=== PATIENT | male | born 1995 | race Caucasian/White ===

== ENCOUNTER 2016-03-28 23:01 | Emergency (ER) | payer MEDICAID ==
[~2016-03-28] VITALS: Ht 180.3 cm; Wt 115.7 kg
[2016-03-28 23:05] VITALS: BP 155/93
--- NOTE | 2016-03-28 23:10 | NUR ---
PT TAKEN TO BED 3 Addendum: 03/28/16 at 2312 by LISBETO PT TAKEN TO BED 1
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
--- NOTE | 2016-03-28 23:30 | NUR ---
Dr. Mendoza evaluating patient at bedside.
[2016-03-28] MEDS ORDERED: DEXAMETHASONE 10 MG/ML VIAL PO ONE (23:45)
[2016-03-28] MEDS ORDERED: HYDROcodone/APAP 5/325 MG 1 TAB TAB PO ONE (23:45)
[2016-03-28] MEDS ORDERED: KETOROLAC 30 MG/ML VIAL IM ONE (23:45)
[2016-03-29 00:10] VITALS: BP 140/85
--- NOTE | 2016-03-29 00:11 | NUR ---
Note yenifer in EDM - 03/29/16 at 0012 by MED Patient discharged with v/s stable. Written and verbal after care instructions given and explained. Patient alert, oriented and verbalized understanding of instructions. Ambulatory with steady gait. All questions addressed prior to discharge. ID band removed. Patient advised to follow up with PMD. Rx of AMOXICILLIN 500MG, TYLENOL NO.3, NAPROSYN 500 MG given. Patient educated on indication of medication including possible reaction and side effects. Opportunity to ask questions provided and answered.
[2016-05-05] MEDS ORDERED: ULTRAM50 MG PO (02:29)
[2016-05-05] MEDS ORDERED: MOTRIN600 MG PO (02:29)
[2016-05-09] MEDS ORDERED: ASPIRIN81 M1 PO (12:03)
[2016-05-09] MEDS ORDERED: ACETAMINOPHEN &1 TA1 PO (12:03)
[2016-05-09] MEDS ORDERED: CULTURELLE10 Billion PO (12:03)
[2016-05-09] MEDS ORDERED: ATORVASTATIN CA20 MG PO (12:03)
[2016-05-09] MEDS ORDERED: BACTRIM DS 800/1 TAB PO (12:10)
[2016-05-09] MEDS ORDERED: COLACE100 M1 PO (12:13)
== END 2016-03-29 00:09 | disposition home or self-care (01) ==
LOC: MED 23:01
DX: H66.92 Otitis media, unspecified, left ear (principal); J02.9 Acute pharyngitis, unspecified
CPT/HCPCS: 96372; 99283; J1100; J1885

== ENCOUNTER 2016-05-04 22:57 | Inpatient (IN) | payer MEDICAID ==
[~2016-05-04] VITALS: Ht 180.3 cm; Wt 115.7 kg
[2016-05-04 23:38] VITALS: BP 109/74
--- NOTE | 2016-05-05 00:54 | NUR ---
PT TAKEN TO OF3
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
--- NOTE | 2016-05-05 01:05 | NUR ---
Dr. Sahu evaluating patient
[2016-05-05] MEDS ORDERED: MORPHINE SULFATE 10 MG/ML SYR IVP ONE (01:10)
[2016-05-05] MEDS ORDERED: VANCOMYCIN 1,000 MG in DEXTROSE 5% 250 ML IV ONE (01:10)
--- NOTE | 2016-05-05 01:10 | NUR ---
PT MOVED TO BED 7
[2016-05-05] MEDS ORDERED: VANCOMYCIN 1,000 MG VIAL ONE (01:19)
--- NOTE | 2016-05-05 01:27 | NUR ---
X-Ray at bedside.
[2016-05-05 01:30] LABS: BASOPHILS # (AUTO) 0.6 K/uL (0.00-0.22); BASOPHILS % (AUTO) 3.6 % (0.0-2.0); EOSINOPHILS # (AUTO) 0.4 K/uL (0-0.4); EOSINOPHILS % (AUTO) 2.4 % (0.0-4.0); HEMATOCRIT 47.1 % (36-52); HEMOGLOBIN 15.6 g/dL (12.0-18.0); LYMPHOCYTES # (AUTO) 3.3 K/uL (2.0-11.5); LYMPHOCYTES % (AUTO) 20.2 % (20.5-51.1); MEAN CORPUSCULAR HEMOGLOBIN 29 pg (27-31); MEAN CORPUSCULAR HGB CONC 33 g/dL (33-37); MEAN CORPUSCULAR VOLUME 88 fL (80-94); MONOCYTES # (AUTO) 0.7 K/uL (0.8-1.0); NEUTROPHILS # (AUTO) 11.3 K/uL (1.8-7.7); NEUTROPHILS % (AUTO) 69.8 % (42.2-75.2); PLATELET COUNT (AUTO) 267 K/uL (140-450); RED BLOOD CELL COUNT(AUTO) 5.38 MIL/uL (4.20-6.10); RED CELL DISTRIBUTION WIDTH 12.1 % (11.6-13.7)
[2016-05-05 01:41] LABS: WHITE BLOOD COUNT (AUTO) 16.3 K/uL (4.8-10.8)
[2016-05-05 01:46] LABS: ANION GAP 8.5 (8-16); CALCIUM 8.3 mg/dL (8.5-10.1); CARBON DIOXIDE 32.2 mmol/L (21-32); CREATININE 1.1 mg/dL (0.6-1.3); POTASSIUM 3.7 mmol/L (3.5-5.1); TOTAL BILIRUBIN 0.4 mg/dL (0.0-1.0); TOTAL PROTEIN, SERUM 7.7 g/dL (6.4-8.2)
[2016-05-05] MEDS ORDERED: IBUP-2213 PO (02:29)
[2016-05-05] MEDS ORDERED: TRAM50TA94 PO (02:29)
[2016-05-05 02:30] LABS: APPEARANCE,URINE CLEAR (CLEAR); BILIRUBIN,URINE NEGATIVE (NEGATIVE); BLOOD, URINE NEGATIVE (NEGATIVE); COLOR,URINE YELLOW (YELLOW); LEUKOCYTE ESTERASE ,URINE NEGATIVE (NEGATIVE); NITRITE, URINE NEGATIVE (NEGATIVE); PROTEIN,URINE TRACE (NEGATIVE); UGLUCOSE NEGATIVE (NEGATIVE); UROBILINOGEN,URINE 0.2 EU/dL (0.2 - 1)
[2016-05-05 02:46] LABS: BACTERIA,URINE FEW /HPF (None Seen); MUCUS,URINE 4+ /LPF (None Seen); RBC,URINE 0-5 (RARE) /HPF (0-5); SQUAMOUS EPITHELIAL CELL,UR 0-3 (FEW) /LPF (0-3 (FEW)); WBC,URINE 0-5 (RARE) /HPF (0-5)
--- NOTE | 2016-05-05 02:56 | NUR ---
[address] in [facility] - 05/05/16 at 0257 by DOMINIQUE SALBADOR BOLANOS RN GIVE REPORT; STATES SHE WILL CALL BACK
--- NOTE | 2016-05-05 02:56 | NUR ---
CALLED LUKE BOLANOS FOR REPORT; STATES SHE WILL CALL BACK
--- NOTE | 2016-05-05 03:06 | NUR ---
Patient will be admitted to care of . Admited to M/S. Will go to room 119B. Belongings list completed. Report to LUKE BOLANOS
--- NOTE | 2016-05-05 03:20 | NUR ---
ADMITTED 20 YEAR OLD MALE FROM ER. PT ARRIVED TO UNIT VIA WHEEL CHAIR. INITIAL ASSESSMENT COMPLETED. PT AAOX4. PT HAS IV TO RIGHT AC G 20, ASYMPTOMATIC, PATENT AND INTACT INFUSING VANCO AT THIS TIME. PT HAS CELLULITIS TO LEFT KNEE/ULCER. PT'S VS : BP 123/98, HR78, 02 SAT 98%, R 18, T 98.7. PT STABLE. PT AMBULATES. ORIENTED PT TO ROOM AND SURROUNDINGS AND USE OF CALL LIGHT. SAFETY MEASURES IN PLACE. WILL CONTINUE TO MONITOR PT.
[2016-05-05] MEDS ORDERED: NACL 0.9% 1,000 ML IV SCH (03:56)
[2016-05-05] MEDS: CLINDAMYCIN 600 MG in DEXTROSE 5% 50 ML IV SCH ×4 (05:23→23:14)
[2016-05-05] MEDS ORDERED: CLINDAMYCIN 600 MG/4 ML VIAL ONE (05:23)
--- NOTE | 2016-05-05 05:33 | NUR ---
0600 CLEOCIN INFUSING NOW. PT STABLE RESTING IN BED. WILL CONTINUE TO MONITOR PT.
--- NOTE | 2016-05-05 07:16 | NUR ---
PT COMPLAINING OF KNEE PAIN 09/29, VS STABLE. WILL MEDICATE ORDERED.
[2016-05-05] MEDS: MORPHINE SULFATE 2 MG/ML SYR IVP PRN ×2 (07:18→18:00)
--- NOTE | 2016-05-05 07:34 | NUR ---
ENDORSED PT IN STABLE CONDITION TO RN SANDRA FOR CONTINUITY OF CARE. ENDORSED RN TO DO PAIN REASSESSMENT ON PT.
--- NOTE | 2016-05-05 07:35 | NUR ---
PT ALERT AND ORIENTED X4. BREATHING EVENLY AND UNLABORED. NO SIGNS OF ACUTE DISTRESS. SKIN IS WARM AND DRY. NOTED REDNESS ON LEFT KNEE AND ELBOW, DX CELLULITIS. CONTINUE ON CURRENT TREATMENT OF IV ABX AND FLUIDS. NO SIGNS OF ANY BOWEL/BLADDER DISCOMFORT. PAIN MANAGEMENT RENDERED. ALL NEEDS ATTENDED. SAFETY PRECAUTIONS MAINTAINED. CALL LIGHT WITHIN REACH.
--- NOTE | 2016-05-05 07:39 | NUR ---
NEW ORDERS RECEIVED FROM DR. FRIAS. NOTED AND CARRIED OUT.
[2016-05-05 08:00] VITALS: BP 132/78
[2016-05-05] MEDS: CALCIUM CARBONATE 500 MG TAB PO SCH ×2 (08:26→20:12)
[2016-05-05] MEDS: ONDANSETRON 4 MG/2 ML VIAL IVP PRN ×2 (08:26→18:03)
[2016-05-05] MEDS ORDERED: HYDROmorphone 1 MG/ML AMP IVP SCH (08:30)
[2016-05-05] MEDS: NACL 0.9% 1,000 ML IV SCH ×4 (08:40→20:11)
--- NOTE | 2016-05-05 08:45 | NUR ---
WENT OFF UNIT FOR CT.
--- NOTE | 2016-05-05 08:53 | NUR ---
PT CAME BACK FROM CT, A/O X4 NO SIGNS OF ACUTE DISTRESS. CONTINUE TO MONITOR.
[2016-05-05] MEDS ORDERED: SACCHAROMYCES 250 MG CAP PO SCH (09:00)
--- NOTE | 2016-05-05 09:06 | NUR ---
PATIENT HAS BEEN SCREENED AND CATEGORIZED HIGH NUTRITION RISK. PATIENT WILL BE SEEN WITHIN 1-2 DAYS OF ADMISSION. 05/05/16-05/06/[address]
[2016-05-05] MEDS: COMPOSITE DRESSING TP SCH (11:20)
[2016-05-05] MEDS ORDERED: ATORVASTATIN 20 MG TAB PO SCH (13:15)
[2016-05-05] MEDS ORDERED: LIDOCAINE 1% 500 MG/50 ML VIAL INJ SCH (13:20)
[2016-05-05] MEDS ORDERED: LIDOCAINE 2% 1000 MG/50 ML VIAL INJ ONE (13:25)
[2016-05-05] MEDS ORDERED: LIDOCAINE 1% 50 ML ONE (13:26)
[2016-05-05] MEDS ORDERED: HYDROmorphone 1 MG/ML AMP IVP PRN (13:30)
--- NOTE | 2016-05-05 13:34 | NUR ---
PT TO BE STARTED ON PROCEDURE, DEBRIDEMENT OF LEFT KNEE BY ASSIGNED RESIDENTS WITH DR. ACEVEDO RISKS AND BENEFITS EXPLAINED BY MD. CONTINUE TO MONITOR.
[2016-05-05] MEDS ORDERED: HYDROmorphone 1 MG/ML AMP ONE (13:35)
--- NOTE | 2016-05-05 14:00 | NUR ---
DRESSING ON LEFT KNEE INTACT AND DRY. NO BLEEDING OR DISCHARGE NOTED.
--- NOTE | 2016-05-05 14:00 | NUR ---
PT S/P DEBRIDEMENT ON LEFT KNEE. TOLERATED WELL. DR. CRANE ALSO ON UNIT AND WAS SEEN BY MD. CONTINUE TO MONITOR.
[2016-05-05] MEDS ORDERED: DRY DRESSING TP PRN (14:55)
[2016-05-05] MEDS ORDERED: NACL 0.9% IRR 250 ML BOTTLE IR PRN (14:55)
--- NOTE | 2016-05-05 15:00 | NUR ---
05/05/16 RD INITIAL ASSESSMENT COMPLETED PLEASE REFER TO NUTRITION ASSESSMENT UNDER CARE ACTIVITY FOR ESTIMATED NUTRITIONAL NEEDS. RD RECOMMENDATIONS: 1. CONTINUE NPO MEDICALLY NECESSARY PER MD 2. WHEN MEDICALLY APPROPRIATE CONSIDER ADVANCE PT DIET TOLERATED TO REGULAR 2. RD WILL F/U 3-5 DAYS; MODERATE RISK. HECTOR CHASE RD
[2016-05-05 15:30] VITALS: BP 129/69
--- NOTE | 2016-05-05 15:30 | NUR ---
NOTED PT'S TEMP ELEVATED 100.1F. COOLING MEASURES RENDERED, CONTINUE TO MONITOR.
--- NOTE | 2016-05-05 16:20 | NUR ---
PT TEMP DECREASED TO 97.6F INTERVENTION EFFECTIVE. PT IS RESTING WELL. NO C/O PAIN AT THIS TIME. CONTINUE TO MONITOR.
--- NOTE | 2016-05-05 18:53 | NUR ---
PT ALERT AND RESPONSIVE, NO SIGNS OF ACUTE DISTRESS. WILL ENDORSE TO ONCOMING PRINCIPAL MILITARY ANALYST NURSE FOR CONTINUITY OF CARE.
--- NOTE | 2016-05-05 19:20 | NUR ---
RECEIVED PT ON BED, DENIES ANY PAIN, DRESSING TO LEFT KNEE INTACT WITH MODERATE DRAINAGE NOTED, IVF INFUSING WELL, POC DISCUSSED WITH PT AND FAMILY MEMBERS AT BEDSIDE, SAFETY MEASURES IN PLACE, CALL LIGHT WITHIN REACH.
--- NOTE | 2016-05-05 20:20 | NUR ---
DRESSING CHANGE DONE TO LEFT KNEE WOUND, MODERATE SEROSANGUINEOUS DRAINAGE NOTED, COVERED WITH DRY DRESSING, ABD PAD AND ROLLED GAUZE, DUE MEDICATIONS ADMINISTERED, FAMILY BROUGHT FOOD FROM OUTSIDE, TOLERATING WELL, IVF INFUSING WELL, ALL NEEDS ATTENDED.
[2016-05-05] MEDS: HYDROcodone/APAP 10/325 MG 1 TAB TAB PO PRN (21:24)
--- NOTE | 2016-05-05 21:30 | NUR ---
MEDICATED PRN FOR PAIN WITH NORCO, ALL NEEDS ATTENDED.
[2016-05-06] VITALS: BP 116/63
--- NOTE | 2016-05-06 | NUR ---
PT SLEEPING, EASILY AROUSABLE, VITAL SIGNS STABLE, DENIES ANY PAIN, LEFT KNEE DRESSING DRY AND INTACT, CONTINUE TO MONITOR CLOSELY.
[2016-05-06] MEDS: NACL 0.9% IRR 250 ML BOTTLE IR SCH ×2 (00:44→13:00)
[2016-05-06] MEDS: NACL 0.9% 1,000 ML IV SCH ×2 (04:30→12:00)
--- NOTE | 2016-05-06 05:30 | NUR ---
DUE IV ANTIBIOTIC ADMINISTERED, NO SIGNS OF PAIN, MONITORED CLOSELY.
[2016-05-06] MEDS: CLINDAMYCIN 600 MG in DEXTROSE 5% 50 ML IV SCH ×3 (05:33→17:29)
[2016-05-06 05:47] LABS: BASOPHILS # (AUTO) 0.1 K/uL (0.00-0.22); BASOPHILS % (AUTO) 0.6 % (0.0-2.0); EOSINOPHILS # (AUTO) 0.2 K/uL (0-0.4); EOSINOPHILS % (AUTO) 0.8 % (0.0-4.0); HEMATOCRIT 42.5 % (36-52); HEMOGLOBIN 14.3 g/dL (12.0-18.0); LYMPHOCYTES # (AUTO) 1.9 K/uL (2.0-11.5); LYMPHOCYTES % (AUTO) 9.5 % (20.5-51.1); MEAN CORPUSCULAR HEMOGLOBIN 30 pg (27-31); MEAN CORPUSCULAR HGB CONC 34 g/dL (33-37); MEAN CORPUSCULAR VOLUME 88 fL (80-94); MONOCYTES # (AUTO) 1.1 K/uL (0.8-1.0); MONOCYTES % (AUTO) 5.4 % (1.7-9.3); NEUTROPHILS # (AUTO) 16.3 K/uL (1.8-7.7); NEUTROPHILS % (AUTO) 83.7 % (42.2-75.2); PLATELET COUNT (AUTO) 186 K/uL (140-450); RED BLOOD CELL COUNT(AUTO) 4.81 MIL/uL (4.20-6.10); RED CELL DISTRIBUTION WIDTH 12.1 % (11.6-13.7)
[2016-05-06 06:05] LABS: ALBUMIN 3.1 g/dL (3.4-5.0); ANION GAP 10.2 (8-16); CALCIUM 7.9 mg/dL (8.5-10.1); CARBON DIOXIDE 29.8 mmol/L (21-32); MAGNESIUM 1.9 mg/dL (1.8-2.4); PHOSPHORUS 2.7 mg/dL (2.5-4.9); TOTAL BILIRUBIN 1.1 mg/dL (0.0-1.0); TOTAL PROTEIN, SERUM 6.8 g/dL (6.4-8.2)
[2016-05-06] MEDS: HYDROcodone/APAP 10/325 MG 1 TAB TAB PO PRN ×3 (06:19→17:29)
--- NOTE | 2016-05-06 06:20 | NUR ---
PT SEEN BY DR ACEVEDO AND DR FRIAS AT BEDSIDE, MINIMAL DRAINAGE NOTED TO LEFT KNEE DRESSING, DRESSING CHANGE DONE, TOLERATED WELL, MEDICATED WITH NORCO FOR PAIN, IVF INFUSING WELL.
[2016-05-06 06:42] LABS: WHITE BLOOD COUNT (AUTO) 19.6 K/uL (4.8-10.8)
--- NOTE | 2016-05-06 07:16 | NUR ---
PT SLEEPING, NO SIGNS OF DISTRESS, REPORT GIVEN TO RN SCOTTY FOR CONTINUITY OF CARE.
--- NOTE | 2016-05-06 07:20 | NUR ---
RECEIVED REPORT FROM CUPOLA PATCHER HELPER RN. PT IS SLEEPING. NO S/S OF ACUTE CARDIAC/RESPIRATORY DISTRESS OR DISCOMFORT. SAFETY MEASURES AND FALL RISK PRECAUTION IN PLACE. CALL LIGHT WITHIN REACH. WILL CONTINUE PLAN OF CARE AND CONTINUE TO MONITOR.
[2016-05-06 07:56] VITALS: BP 115/55
[2016-05-06] MEDS: ATORVASTATIN 20 MG TAB PO SCH (09:23)
[2016-05-06] MEDS: LACTOBACILLUS RHAMNOSUS GG 1 EACH CAP PO SCH (09:23)
[2016-05-06] MEDS: CALCIUM CARBONATE 500 MG TAB PO SCH ×2 (09:23→20:48)
--- NOTE | 2016-05-06 10:24 | NUR ---
PT IS ON HIS PHONE, RESTING IN BED. PT TOLERATED AM MEDS WELL. NO S/S OF ACUTE DISTRESS OR DISCOMFORT. CALL LIGHT WITHIN REACH, WILL CONTINUE TO MONITOR.
[2016-05-06] MEDS: DRY DRESSING TP SCH (13:00)
[2016-05-06] MEDS: COMPOSITE DRESSING TP SCH (13:00)
--- NOTE | 2016-05-06 13:00 | NUR ---
PT SEEN BY DR CRANE, SPOKE WITH PT'S MOTHER WELL. DRESSING CHANGE DONE. PT TOLERATED PROCEDURE WELL. DISCUSSED PLAN OF CARE AND DRESSING TEACHING PROVIDED TO PT AND HIS MOTHER, VERBALIZED UNDERSTANDING.
[2016-05-06 16:00] VITALS: BP 131/69
--- NOTE | 2016-05-06 16:00 | NUR ---
PT AND HIS MOTHER RAISED THEIR CONCERN ABOUT CARE NOT BEING UP TO PAR AND WOULD LIKE TO BE TRANSFERRED TO [facility] [place]. CHARGE NURSE AND MD MADE AWARE. PT HAS MILD FEVER, MEDICATED WITH TYLENOL. MOTHER WHEELCHAIRED PT AROUND THE HOSPITAL FOR AIR. PT HAS NO S/S OF ACUTE DISTRESS OR DISCOMFORT. WILL CONTINUE TO MONITOR.
[2016-05-06] MEDS: ACETAMINOPHEN 325 MG TAB PO PRN ×2 (16:55→23:33)
--- NOTE | 2016-05-06 19:30 | NUR ---
ENDORSED REPORT TO SMALL PRODUCTS I ASSEMBLER RN. PT HAS NO S/S OF ACUTE DISCOMFORT OR DISTRESS. PT IN STABLE CONDITION.
--- NOTE | 2016-05-06 19:30 | NUR ---
RECEIVED REPORT FROM DEANNE SWEENEY RN AT BEDSIDE. PT IS ALERT AWAKE ORIENTED X4. INITIAL ASSESSMENT DONE. NO S/S OF RESPIRATORY DISTRESS OR SOB NOTED. NO C/O PAIN OR ANY DISCOMFORT AT THIS TIME. PLAN OF CARE REVIEWED TO PT AND FAMILY AT BEDSIDE AND VERBALIZED UNDERSTANDING. CALL LIGHT WITHIN REACH. WILL CONTINUE TO MONITOR.
--- NOTE | 2016-05-06 20:43 | NUR ---
GAVE REPORT TO SHARI AT BEDSIDE FOR CONTINUITY OF CARE.
--- NOTE | 2016-05-06 20:45 | NUR ---
RECEIVED REPORT FROM LOYDA BUTLER AT BEDSIDE, PATIENT IS IN STABLE CONDITION RESTING IN BED WITH FAMILY MEMBERS AT BEDSIDE, PATIENT IS ON ROOM AIR, NO SOB OR SIGN OF DISTRESS AT THIS TIME, IV TO LFA PATENT AND INTACT. NOTED OPEN WOUND TO LEFT KNEE, COVERED WITH DRESSING DRY AND INTACT. PATIENT DENIES PAIN AT THIS TIME, DISCUSSED PLAN OF CARE WITH PATIENT, PATIENT VERBALIZED UNDERSTANDING, CALL LIGHT WITHIN REACH. WILL CONTINUE TO MONITOR.
--- NOTE | 2016-05-06 20:55 | NUR ---
PM MEDS ADMINISTERED, PATIENT TOLERATED WELL, FAMILY AT BEDSIDE, CALL LIGHT WITHIN REACH. WILL CONTINUE TO MONITOR
[2016-05-07] VITALS: BP 126/61
--- NOTE | 2016-05-07 00:30 | NUR ---
DUE MEDS ADMINISTERED, PATIENT TOLERATED WELL, DISCUSSED WITH PATIENT DRESSING TO BE CHANGED LATER IN THE MORNING, PATIENT VERBALIZED UNDERSTANDING, CALL LIGHT WITHIN REACH. WILL CONTINUE TO MONITOR. VITAL SIGNS STABLE.
[2016-05-07] MEDS: CLINDAMYCIN 600 MG in DEXTROSE 5% 50 ML IV SCH ×5 (00:35→23:41)
[2016-05-07] MEDS: HYDROcodone/APAP 10/325 MG 1 TAB TAB PO PRN (00:35)
[2016-05-07] MEDS: NACL 0.9% IRR 250 ML BOTTLE IR SCH ×2 (01:28→13:02)
--- NOTE | 2016-05-07 02:30 | NUR ---
PATIENT SLEEPING, NO SOB OR SIGN OF DISTRESS AT THIS TIME, CALL LIGHT WITHIN REACH. WILL CONTINUE TO MONITOR.
--- NOTE | 2016-05-07 04:00 | NUR ---
PATIENT SLEEPING, NO SOB OR SIGN OF DISTRESS AT THIS TIME, CALL LIGHT WITHIN REACH. WILL CONTINUE TO MONITOR.
--- NOTE | 2016-05-07 05:45 | NUR ---
PATIENT WAS SLEEPING, WOKE UP FOR DRESSING CHANGE, PATIENT TOLERATED WELL, CALL LIGHT WITHIN REACH. WILL CONTINUE TO MONITOR
[2016-05-07 06:27] LABS: BASOPHILS # (AUTO) 0.1 K/uL (0.00-0.22); BASOPHILS % (AUTO) 0.9 % (0.0-2.0); EOSINOPHILS # (AUTO) 0.3 K/uL (0-0.4); EOSINOPHILS % (AUTO) 2.1 % (0.0-4.0); HEMATOCRIT 41.8 % (36-52); HEMOGLOBIN 14.1 g/dL (12.0-18.0); LYMPHOCYTES % (AUTO) 14.2 % (20.5-51.1); MEAN CORPUSCULAR HEMOGLOBIN 30 pg (27-31); MEAN CORPUSCULAR HGB CONC 34 g/dL (33-37); MEAN CORPUSCULAR VOLUME 88 fL (80-94); MONOCYTES # (AUTO) 0.9 K/uL (0.8-1.0); MONOCYTES % (AUTO) 6.2 % (1.7-9.3); NEUTROPHILS % (AUTO) 76.6 % (42.2-75.2); PLATELET COUNT (AUTO) 187 K/uL (140-450); RED BLOOD CELL COUNT(AUTO) 4.74 MIL/uL (4.20-6.10); RED CELL DISTRIBUTION WIDTH 11.8 % (11.6-13.7); WHITE BLOOD COUNT (AUTO) 14.3 K/uL (4.8-10.8)
[2016-05-07 06:35] LABS: CALCIUM 7.8 mg/dL (8.5-10.1); CARBON DIOXIDE 31.8 mmol/L (21-32); POTASSIUM 3.8 mmol/L (3.5-5.1)
[2016-05-07 06:39] LABS: MAGNESIUM 2.1 mg/dL (1.8-2.4); PHOSPHORUS 2.7 mg/dL (2.5-4.9)
--- NOTE | 2016-05-07 07:24 | NUR ---
ENDORSED PATIENT TO DAY RN AT BEDSIDE, PATIENT IN STABLE CONDITION
--- NOTE | 2016-05-07 07:25 | NUR ---
RECEIVED PT FROM LUKE MCCARTHY ASLEEP BUT EASILY AWOKEN, AAOX4, WITH NO S/S OF RESPIRATORY DISTRESS OR DISCOMFORT. WITH IV ACCESS ON LEFT FOREARM 22G INFUSING FLUIDS WELL. WITH WOUND DRESSING ON LEFT KNEE, DRESSING DRY AND INTACT. WITH BRUISES ON RIGHT KNEE. NO COMPLAINTS AT THIS TIME. DISCUSSED PLAN OF CARE, PT VERBALIZED UNDERSTANDING. CALL LIGHT WITHIN REACH, WILL CONTINUE TO MONITOR.
[2016-05-07 08:00] VITALS: BP 122/73
[2016-05-07] MEDS: LACTOBACILLUS RHAMNOSUS GG 1 EACH CAP PO SCH (08:54)
[2016-05-07] MEDS: CALCIUM CARBONATE 500 MG TAB PO SCH ×2 (08:54→20:32)
[2016-05-07] MEDS: ATORVASTATIN 20 MG TAB PO SCH (09:01)
--- NOTE | 2016-05-07 09:07 | NUR ---
DUE MEDS GIVEN, PT TOLERATED WELL. MOTHER AT BEDSIDE. ALL NEEDS MET, WILL CONTINUE TO MONITOR.
--- NOTE | 2016-05-07 09:52 | NUR ---
DR MARQUES AT BEDSIDE.
--- NOTE | 2016-05-07 11:01 | NUR ---
PT AWAKE, WITH RELATIVES AT BEDSIDE, NO DISTRESS AT THIS TIME. ALL NEEDS MET. WITH MOTHER AT BEDSIDE.
[2016-05-07] MEDS: NACL 0.9% 1,000 ML IV SCH (11:30)
--- NOTE | 2016-05-07 12:01 | NUR ---
PT ASLEEP, NO SIGNS OF DISTRESS AT THIS TIME. CALL LIGHT WITHIN REACH, WILL CONTINUE TO MONITOR.
[2016-05-07] MEDS: COMPOSITE DRESSING TP SCH (13:02)
[2016-05-07] MEDS: DRY DRESSING TP SCH (13:03)
--- NOTE | 2016-05-07 13:17 | NUR ---
DRESSING CHANGED ON RIGHT KNEE. PT TOLERATED WELL. MINIMAL SANGUINEOUS DRAINAGE NOTED.
--- NOTE | 2016-05-07 15:48 | NUR ---
PT ASLEEP, WITH RELATIVE AT BEDSIDE. NO COMPLAINTS AT THIS TIME. CALL LIGHT WITHIN REACH, WILL CONTINUE TO MONITOR.
[2016-05-07 16:00] VITALS: BP 127/59
--- NOTE | 2016-05-07 17:41 | NUR ---
PT AWAKE SITTING ON BED WITH DAUGHTER AT BEDSIDE. NO S/S OF DISTRESS, DRESSING INTACT. CALL LIGHT WITHIN REACH, WILL CONTINUE TO MONITOR. Addendum: 05/07/16 at 1915 by Anne Campos RN WRONG PATIENT
--- NOTE | 2016-05-07 17:41 | NUR ---
PT AWAKE SITTING ON BED WATCHING TV WITH RELATIVE AT BEDSIDE. PT ABLE TO AMBULATE FROM BED TO TOILET, HAD BOWEL MOVEMENT. ALL NEEDS MET AT THIS TIME. CALL LIGHT WITHIN REACH, WILL CONTINUE TO MONITOR.
--- NOTE | 2016-05-07 19:16 | NUR ---
ENDORSED PT TO APURVA JENKINS IN STABLE CONDITION FOR CONTINUITY OF CARE
--- NOTE | 2016-05-07 19:17 | NUR ---
RECD. RESTING IN BED, AWAKE, A/OX4. RESPIRATION EVEN AND UNLABORED. IV SALINE LOCK AT THE RIGHT FOREARM G20, PATENT AND INTACT. WATCHING TV. RIGHT LEG WITH REDNESS AND SWELLING NOTED. DRESSING ON THE RIGHT KNEE DRY AND INTACT. PLAN OF CARE FOR THE SHIFT DISCUSSED. CLAIMED PAIN IN THE RIGHT LEG, 03/01, TOLERABLE. DOES NOT WANT TO BE MEDICATED AT THIS TIME. INSTRUCTED TO CALL NURSE IF PAIN INCREASES. VERBALIZED UNDERSTANDING.
--- NOTE | 2016-05-07 20:00 | NUR ---
Patient's Plan of Care was discussed and reviewed with CORRECTIONAL COUNSELOR/CASE MANAGER: ALICE MACEDO
[2016-05-08] VITALS: BP 126/65
--- NOTE | 2016-05-08 | NUR ---
IV INFILTRATED, NEW IV LINE INSERTED BY LUKE GARCIA AT THE RIGHT HAND G22.
[2016-05-08] MEDS: HYDROcodone/APAP 10/325 MG 1 TAB TAB PO PRN ×2 (00:06→21:53)
[2016-05-08] MEDS: NACL 0.9% IRR 250 ML BOTTLE IR SCH ×2 (01:00→13:00)
--- NOTE | 2016-05-08 01:30 | NUR ---
IV ACCIDENTALLY DISCONNECTED FROM PATIENT DUE TO PATIENT'S MOVEMENTS IN BED, CLEANSED AND REINFORCED TAPES.
--- NOTE | 2016-05-08 02:00 | NUR ---
STILL AWAKE IN BED, SPEAKING WITH SOMEBODY IN HIS CELLPHONE.
--- NOTE | 2016-05-08 03:00 | NUR ---
SLEEPING COMFORTABLY IN BED.
[2016-05-08] MEDS: CLINDAMYCIN 600 MG in DEXTROSE 5% 50 ML IV SCH ×3 (06:12→17:36)
--- NOTE | 2016-05-08 06:45 | NUR ---
STILL SLEEPING IN BED COMFORTABLY. WILL ENDORSED TO AM NURSE FOR CONTINUITY OF CARE.
[2016-05-08 06:46] LABS: BASOPHILS # (AUTO) 0.1 K/uL (0.00-0.22); EOSINOPHILS # (AUTO) 0.2 K/uL (0-0.4); EOSINOPHILS % (AUTO) 1.7 % (0.0-4.0); HEMATOCRIT 41.1 % (36-52); LYMPHOCYTES # (AUTO) 2.4 K/uL (2.0-11.5); LYMPHOCYTES % (AUTO) 21.5 % (20.5-51.1); MEAN CORPUSCULAR HEMOGLOBIN 30 pg (27-31); MEAN CORPUSCULAR HGB CONC 34 g/dL (33-37); MEAN CORPUSCULAR VOLUME 87 fL (80-94); MONOCYTES # (AUTO) 0.8 K/uL (0.8-1.0); MONOCYTES % (AUTO) 7.1 % (1.7-9.3); NEUTROPHILS # (AUTO) 7.8 K/uL (1.8-7.7); NEUTROPHILS % (AUTO) 68.7 % (42.2-75.2); PLATELET COUNT (AUTO) 227 K/uL (140-450); RED BLOOD CELL COUNT(AUTO) 4.73 MIL/uL (4.20-6.10); RED CELL DISTRIBUTION WIDTH 11.3 % (11.6-13.7); WHITE BLOOD COUNT (AUTO) 11.3 K/uL (4.8-10.8)
[2016-05-08 06:59] LABS: ANION GAP 6.2 (8-16); CALCIUM 8.2 mg/dL (8.5-10.1); CARBON DIOXIDE 31.5 mmol/L (21-32); POTASSIUM 3.7 mmol/L (3.5-5.1)
[2016-05-08 07:13] LABS: MAGNESIUM 2.2 mg/dL (1.8-2.4); PHOSPHORUS 3.6 mg/dL (2.5-4.9)
--- NOTE | 2016-05-08 07:15 | NUR ---
RECEIVED PATIENT REPORT AT BEDSIDE. PATIENT AWAKE, ALERT AND ORIENTED. NO S/S OF DISTRESS NOTED. DRESSING NOTED TO THE LEFT KNEE. DRESSING CLEAN DRY AND INTACT. IV LINE TO THE RIGHT HAND INTACT WITH IVF INFUSING WELL. BED LOWERED WITH CALL LIGHT WITHIN REACH. WILL CONTINUE TO MONITOR
--- NOTE | 2016-05-08 07:20 | NUR ---
SAFETY MAINTAINED DURING SHIFT. ENDORSED TO LUKE RUEDA FOR CONTINUITY OF CARE.
[2016-05-08 08:00] VITALS: BP 130/77
[2016-05-08 08:44] LABS: FREE T4 (FREE THYROXINE) 0.91 ng/dL (0.76-1.46); THYROID STIMULATING HORMONE 3.69 uIU/mL (0.34-3.76)
[2016-05-08] MEDS: ATORVASTATIN 20 MG TAB PO SCH (09:21)
[2016-05-08] MEDS: LACTOBACILLUS RHAMNOSUS GG 1 EACH CAP PO SCH (09:21)
[2016-05-08] MEDS: CALCIUM CARBONATE 500 MG TAB PO SCH ×2 (09:22→21:53)
--- NOTE | 2016-05-08 09:30 | NUR ---
ADMINISTERED DUE MEDS. PATIENT TOLERATED WELL. WILL CONTINUE TO MONITOR
--- NOTE | 2016-05-08 11:00 | NUR ---
PATIENT ASLEEP IN BED. NO S/S OF DISTRESS NOTED
[2016-05-08] MEDS: NACL 0.9% 1,000 ML IV SCH (11:11)
[2016-05-08] MEDS: COMPOSITE DRESSING TP SCH (13:00)
[2016-05-08] MEDS: DRY DRESSING TP SCH (13:00)
--- NOTE | 2016-05-08 13:30 | NUR ---
PATIENT IN BED WATCHING TELEVISION. NO S/S OF DISTRESS NOTED. MOTHER PRESENT AT BEDSIDE
[2016-05-08 16:00] VITALS: BP 115/55
--- NOTE | 2016-05-08 17:06 | NUR ---
WOUND DRESSING TO THE LEFT KNEE CHANGED. PATIENT TOLERATED WELL. PT'S MOTHER PRESENT AT BEDSIDE
--- NOTE | 2016-05-08 19:14 | NUR ---
ENDORSED CONTINUITY OF CARE TO THE NIGHT NURSE. PATIENT IN STABLE CONDITION
--- NOTE | 2016-05-08 19:15 | NUR ---
RECD. RESTING IN BED, AWAKE, A/OX4. RESPIRATION EVEN AND UNLABORED. IV SALINE LOCK AT THE RIGHT HAND G22, PATENT AND INTACT. LEFT KNEE WOUND COVERED WITH DRESSING DRY AND INTACT. CLAIMED HE FEELS BETTER THAN YESTERDAY.PAIN IN THE SITE 03/01, CLAIMED TOLERABLE. INSTRUCTED TO CALL NURSE WHEN NEEDING HELP. PLAN OF CARE FOR THE SHIFT DISCUSSED. VERBALIZED UNDERSTANDING.
--- NOTE | 2016-05-08 21:00 | NUR ---
Patient's Plan of Care was discussed and reviewed with MANAGER PROGRAMS: ALICE MACEDO
--- NOTE | 2016-05-08 21:10 | NUR ---
WATCHING TV WHILE EATING SNACK FOOD.
--- NOTE | 2016-05-08 23:00 | NUR ---
SPEAKING WITH SOMEBODY IN HIS CELLPHONE, NO COMPLAINT OF PAIN.
[2016-05-09] VITALS: BP 122/70
[2016-05-09] MEDS: CLINDAMYCIN 600 MG in DEXTROSE 5% 50 ML IV SCH ×2 (00:17→06:12)
[2016-05-09] MEDS: NACL 0.9% IRR 250 ML BOTTLE IR SCH ×2 (01:00→13:54)
--- NOTE | 2016-05-09 02:30 | NUR ---
SLEEPING COMFORTABLY IN HIS BED.
[2016-05-09 06:24] LABS: BASOPHILS # (AUTO) 0.1 K/uL (0.00-0.22); BASOPHILS % (AUTO) 1.2 % (0.0-2.0); EOSINOPHILS # (AUTO) 0.3 K/uL (0-0.4); EOSINOPHILS % (AUTO) 3.1 % (0.0-4.0); HEMOGLOBIN 13.9 g/dL (12.0-18.0); LYMPHOCYTES # (AUTO) 2.7 K/uL (2.0-11.5); LYMPHOCYTES % (AUTO) 26.8 % (20.5-51.1); MEAN CORPUSCULAR HEMOGLOBIN 30 pg (27-31); MEAN CORPUSCULAR HGB CONC 34 g/dL (33-37); MEAN CORPUSCULAR VOLUME 88 fL (80-94); MONOCYTES # (AUTO) 0.8 K/uL (0.8-1.0); MONOCYTES % (AUTO) 7.6 % (1.7-9.3); NEUTROPHILS % (AUTO) 61.3 % (42.2-75.2); PLATELET COUNT (AUTO) 250 K/uL (140-450); RED BLOOD CELL COUNT(AUTO) 4.66 MIL/uL (4.20-6.10); RED CELL DISTRIBUTION WIDTH 11.7 % (11.6-13.7); WHITE BLOOD COUNT (AUTO) 9.9 K/uL (4.8-10.8)
--- NOTE | 2016-05-09 07:00 | NUR ---
CONDITION REMAIN STABLE. WILL ENDORSE TO AM NURSE FOR CONTINUITY OF CARE.
--- NOTE | 2016-05-09 07:15 | NUR ---
ENDORSED TO LUKE AGUIRRE FOR CONTINUITY OF CARE.
--- NOTE | 2016-05-09 07:16 | NUR ---
RECEIVED REPORT FROM THE DIRECTOR OF BUSINESS OPERATIONS NURSE. PT IS ALERT AND ORIENTED. I INTRODUCED MYSELF AND UPDATED THE BOARD. PT HAS A R HAND IV TKO. L ELBOW HAS AN ISLAND DRESSING, HIS SCAB CAME OFF. PT HAD L KNEE DEBRIDEMENT ON 04/07. IT IS COVERED WITH DRESSING. DRY AND INTACT. HE IS TO HAVE A WOUND CONSULT TODAY. FAMILY AT BEDSIDE. NO SIGNS OF DISTRESS. WILL CONTINUE TO MONITOR PT.
[2016-05-09] MEDS ORDERED: SULFAMETH/TRIMETH DS 800/160MG 1 TAB PO SCH (07:39)
[2016-05-09 08:00] VITALS: BP 128/80
--- NOTE | 2016-05-09 08:00 | NUR ---
PT V/S ARE WITHIN NORMAL LIMITS. PT IS EATING HIS BREAKFAST. HIS FAMILY MEMBER IS GETTING READY TO LEAVE. EMPTIED HIS URINAL. PT HAS NO COMPLAINTS. NO DISTRESS. WENT OVER THE PLAN FOR TODAY. ANSWERED ALL QUESTIONS. CALL LIGHT WITHIN REACH. WILL CONTINUE TO MONITOR PT.
[2016-05-09] MEDS: ATORVASTATIN 20 MG TAB PO SCH (08:49)
[2016-05-09] MEDS: CALCIUM CARBONATE 500 MG TAB PO SCH (08:49)
[2016-05-09] MEDS: LACTOBACILLUS RHAMNOSUS GG 1 EACH CAP PO SCH (08:49)
[2016-05-09] MEDS: HYDROcodone/APAP 10/325 MG 1 TAB TAB PO PRN (08:54)
--- NOTE | 2016-05-09 08:56 | NUR ---
ADMINISTERED MORNING MEDS. PT TOLERATED WELL. HELP THE HEPARIN, PER PT STATES LONG HIM AMBULATES, HE DOES NOT NEED IT ANYMORE. CONFIRMED WITH MD. WILL CONTINUE TO MONITOR PT.
--- NOTE | 2016-05-09 10:30 | NUR ---
WOUND CARE NOTES: WOUND CARE INSTRUCTIONS PROVIDED, ABLE TO VERBALIZE UNDERSTANDING.
--- NOTE | 2016-05-09 11:08 | NUR ---
PT IN BED, EXERCISING HIS LEG, PLAYING HIS HAND HELD GAME. NO COMPLAINTS. ALL NEEDS MET. WILL CONTINUE TO MONITOR PT.
[2016-05-09] MEDS: NACL 0.9% 1,000 ML IV SCH (11:20)
--- NOTE | 2016-05-09 11:25 | NUR ---
DR. CRANE CALLED. ASKED ABOUT HOW PT IS DOING. PT IS STABLE, AMBULATING, EXERCISING HIS LEG. WANTED TO SPEAK TO THE RESIDENT MD. REFERRED TO DR. FRIAS. PER DR. FRIAS, PT WILL BE D/C'D TODAY. WILL PUT IN ORDERS. NEED TO CHANGED DRESSING BEFORE LEAVING.
[2016-05-09] MEDS: THERAHONEY GEL 42.5 GM TP SCH ×2 (12:00→13:55)
[2016-05-09] MEDS ORDERED: THERAHONEY GEL 42.5 GM TP PRN (12:00)
[2016-05-09] MEDS ORDERED: LACT10CA PO (12:03)
[2016-05-09] MEDS ORDERED: ASPI81CT89 PO (12:03)
[2016-05-09] MEDS ORDERED: ACET-4275 PO (12:03)
[2016-05-09] MEDS ORDERED: ATOR20TA40 PO (12:03)
[2016-05-09] MEDS ORDERED: SULF1TAB12 PO (12:10)
[2016-05-09] MEDS ORDERED: DOCU-67 PO (12:13)
[2016-05-09] MEDS ORDERED: Z-GUARD PASTE TP SCH (13:00)
[2016-05-09] MEDS: COMPOSITE DRESSING TP SCH (13:00)
[2016-05-09] MEDS: DRY DRESSING TP SCH (13:54)
--- NOTE | 2016-05-09 14:00 | NUR ---
DRESSING CHANGE AND WOUND CARE DONE. TOOK PICTURES. REWRAPPED WOUND. PT TOLERATED WELL. INSTRUCTED PT AND FATHER HOW TO DO WOUND CARE. PT AND PARENT VERBALIZED UNDERSTANDING. WENT OVER THE DISCHARGE INSTRUCTIONS. REMOVED IV, CANNULA INTACT, NO BLEEDING NOTED. REMOVED ALL WRIST BANDS. ANSWERED ALL QUESTIONS. PT SIGNED ALL APPROPRIATE PAPERS. WILL CHANGE INTO PERSONAL CLOTHES AND GATHER PERSONAL BELONGINGS. WILL CALL WHEN READY TO LEAVE. WILL CONTINUE TOT MONITOR.
--- NOTE | 2016-05-09 14:16 | NUR ---
WHEELED PT OUT TO THE FRONT OF THE HOSPITAL WITH FAMILY AT HIS SIDE. THEY HAVE ALL HIS PERSONAL BELONGINGS WITH HIM. I ALSO INCLUDED A WEEKS WORTH OF DRESSING. PT IS STABLE. REMINDED HIM TO FILL HIS RX AND FOLLOW UP WITH HIS
[2016-05-12] MEDS ORDERED: LEVO500T98 PO (10:08)
== END 2016-05-09 14:10 | disposition home or self-care (01) | DRG 313 ==
LOC: MED 22:57 → MTU 05-05 02:46
PROVIDERS: ADMIT Family Medicine; ATTEND Family Medicine
PROC: 0S9D0ZZ Drainage of Left Knee Joint, Open Approach (ICD-10-PCS; principal; 2016-05-05)
PROC: 0HBLXZZ Excision of Left Lower Leg Skin, External Approach (ICD-10-PCS; 2016-05-05)
DX: M71.162 Other infective bursitis, left knee (principal); N17.0 Acute kidney failure with tubular necrosis; L03.116 Cellulitis of left lower limb; E83.51 Hypocalcemia; D68.69 Other thrombophilia; R23.4 Changes in skin texture; E66.9 Obesity, unspecified; G43.909 Migraine, unspecified, not intractable, without status migrainosus; I73.9 Peripheral vascular disease, unspecified; R73.03 Prediabetes; Z68.35 Body mass index [BMI] 35.0-35.9, adult; Z71.3 Dietary counseling and surveillance; Z79.899 Other long term (current) drug therapy
CPT/HCPCS: 36415; 73562; 73701; 80048; 80053; 81001; 83036; 83735; 84100; 84439; 84443; 85025; 87040; 87070; 87077; 87081; 87186; 87205; 93005; 93925; 93970; 96365; 96366; 96375; 99285; J1170; J1644; J2001; J2270; J2405; J3370; J3490; J7030; J7060; Q0092; Q9967

== ENCOUNTER 2016-05-11 13:50 | Observation (INO) | payer MEDICAID ==
[~2016-05-11] VITALS: Ht 177.8 cm; Wt 113.4 kg
[~2016-05-11 13:50] MED LIST: ACETAMINOPHEN &1 TA1 PO; ASPIRIN81 M1 PO; ATORVASTATIN CA20 MG PO; BACTRIM DS 800/1 TAB PO; COLACE100 M1 PO; CULTURELLE10 Billion PO; MOTRIN600 MG PO; ULTRAM50 MG PO
[2016-05-11 14:07] VITALS: BP 150/85
[2016-05-11] MEDS ORDERED: cefTRIAXone 1,000 MG in DEXT 5% MINI-BAG PLUS 50 ML IV ONE (14:15)
[2016-05-11] MEDS ORDERED: VANCOMYCIN 1,000 MG in DEXTROSE 5% 250 ML IV ONE (14:15)
--- NOTE | 2016-05-11 14:16 | NUR ---
PT TO BED 2 AT THIS TIME.
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
[2016-05-11] MEDS ORDERED: cefTRIAXone 1,000 MG VIAL ONE (14:30)
[2016-05-11] MEDS ORDERED: VANCOMYCIN 1,000 MG VIAL ONE (14:31)
--- NOTE | 2016-05-11 15:21 | NUR ---
Channing AT BEDSIDE.
[2016-05-11] MEDS ORDERED: ACETAMINOPHEN 325 MG TAB PO PRN (16:00)
[2016-05-11] MEDS ORDERED: MORPHINE SULFATE 2 MG/ML SYR IVP PRN (16:00)
[2016-05-11] MEDS ORDERED: DOCUSATE SODIUM 100 MG GELCAP PO PRN (16:00)
[2016-05-11] MEDS ORDERED: ONDANSETRON 4 MG/2 ML VIAL IVP PRN (16:00)
[2016-05-11] MEDS ORDERED: HYDROcodone/APAP 5/325 MG 1 TAB TAB PO PRN (16:00)
--- NOTE | 2016-05-11 16:10 | NUR ---
PT ADMITTED FROM HOME WITH C/O LEFT KNEE PAIN. PATIENT WAS ADMITTED BEFORE WITH LEFT KNEE CELLULITIS WITH D/C WITH ANTIBIOTICS. PATIENT FOLLOWED UP WITH MD AND WAS PROMPTED TO BE SEEN BY A PHYSICIAN AT A HOSPITAL. PT DENIES ANY MEDICAL HISTORY. PATIENT DX LEFT KNEE CELLULITIS. IV SITE LEFT HAND #24 INTACT AND PATENT. PT AMBULATORY WITH ASSIST. MOTHER AT BEDSIDE. MADE AWARE OF UPCOMING PLANS AND PROCEDURES. AAOX4. C/O PAIN AT THIS TIME, WILL MEDICATE ORDERED. CALL LIGHT WITHIN REACH. WILL CONTINUE TO MONITOR.
--- NOTE | 2016-05-11 16:15 | NUR ---
Patient will be admitted to care of . Admited to Med/Surg. Will go to room 119-B. Belongings list completed. Report to LUKE AMBROSE.
[2016-05-11] MEDS ORDERED: HYDROcodone/APAP 10/325 MG 1 TAB TAB PO PRN (17:30)
[2016-05-11] MEDS ORDERED: NEOMYCIN/POLYMYXIN/BACITRACIN OIN 15 GM TUBE TP SCH (17:35)
[2016-05-11] MEDS: LEVOFLOXACIN 500 MG/D5W PREMIX 100 ML IV SCH (18:02)
--- NOTE | 2016-05-11 19:25 | NUR ---
REPORT GIVEN TO ALICE AT PT BEDSIDE. NO S/S OF ACUTE DISTRESS.
--- NOTE | 2016-05-11 19:26 | NUR ---
RECD. RESTING IN BED, AWAKE, A/OX4. RESPIRATION EVEN AND UNLABORED. IV OF NS AT TKO INFUSING, LEFT HAND G24. WOUND IN THE LEFT KNEE COVERED WITH DRESSING DRY AND INTACT. REDNESS AND SWELLING NOTED AROUND KNEE AREA. LEFT LEG ELEVATED ON PILLOW. PAIN 1/10, STATED TOLERABLE. WILL CALL NURSE WHEN PAIN INCREASES. PLAN OF CARE FOR THE SHIFT DISCUSSED. VERBALIZED UNDERSTANDING.
[2016-05-11 20:00] VITALS: BP 125/65
--- NOTE | 2016-05-11 20:00 | NUR ---
Patient's Plan of Care was discussed and reviewed with IS SUPPORT ANALYST: ALICE MACEDO.
--- NOTE | 2016-05-11 21:10 | NUR ---
WATCHING TV. DUE PO MEDICATION GIVEN.
[2016-05-11] MEDS: CALCIUM CARBONATE 500 MG TAB PO SCH (21:20)
[2016-05-12] VITALS: BP 122/122
--- NOTE | 2016-05-12 | NUR ---
SLEEPING COMFORTABLY IN BED.
[2016-05-12 04:00] VITALS: BP 102/66
--- NOTE | 2016-05-12 04:00 | NUR ---
STILL RESTING COMFORTABLY SLEEPING (SNORING).
--- NOTE | 2016-05-12 06:20 | NUR ---
DR. CRANE CALLED, WILL COME TODAY TO SEE PATIENT.
--- NOTE | 2016-05-12 06:46 | NUR ---
RESTING COMFORTABLY SLEEPING IN BED, CONDITION REMAIN STABLE. WILL ENDORSE TO AM NURSE FOR CONTINUITY OF CARE.
--- NOTE | 2016-05-12 07:20 | NUR ---
ENDORSED TO LUKE RENE FOR CONTINUITY OF CARE.
--- NOTE | 2016-05-12 07:21 | NUR ---
RECEIVED PT AWAKE LYING ON BED, AAOX4, WITH NO S/S OF RESPIRATORY DISTRESS OR DISCOMFORT. WITH IV ACCESS ON LEFT HAND 24G INFUSING FLUIDS WELL. WITH DRY INTACT DRESSING ON LEFT KNEE, NO COMPLAINTS OF PAIN AT THIS TIME. WITH SCAB NOTED ON LEFT ELBOW. DISCUSSED PLAN OF CARE, PT VERBALIZED UNDERSTANDING. SAFTEY PRECAUTIONS ENFORCED. CALL LIGHT WITHIN REACH, WILL CONTINUE TO MONITOR.
[2016-05-12] MEDS ORDERED: NEOMYCIN/POLYMYXIN/BACITRACIN OIN 15 GM TUBE TP SCH (07:51)
[2016-05-12 08:00] VITALS: BP 128/70
[2016-05-12] MEDS ORDERED: PANTOPRAZOLE 40 MG TABEC PO SCH (08:00)
--- NOTE | 2016-05-12 08:01 | NUR ---
PATIENT HAS BEEN SCREENED AND CATEGORIZED MODERATE NUTRITION RISK. PATIENT WILL BE SEEN WITHIN 3-5 DAYS OF ADMISSION. 05/14/16-05/16/[address]
[2016-05-12] MEDS: CALCIUM CARBONATE 500 MG TAB PO SCH (08:48)
--- NOTE | 2016-05-12 08:48 | NUR ---
DUE MEDS GIVEN, PT TOLERATED WELL. CALL LIGHT WITHIN REACH, WILL CONTINUE TO MONITOR.
[2016-05-12] MEDS ORDERED: ASPIRIN 81 MG TAB.CHEW PO SCH (09:00)
[2016-05-12] MEDS ORDERED: LACTOBACILLUS RHAMNOSUS GG 1 EACH CAP PO SCH (09:00)
[2016-05-12] MEDS ORDERED: ATORVASTATIN 20 MG TAB PO SCH (09:00)
[2016-05-12] MEDS: LEVOFLOXACIN 500 MG/D5W PREMIX 100 ML IV SCH (09:07)
--- NOTE | 2016-05-12 09:15 | NUR ---
DRESSING ON LEFT KNEE CHANGED, NO DRAINAGE NOTED. PT TOLERATED WELL. KEPT CLEAN AND DRY. WITH MOTHER AT BEDSIDE.
[2016-05-12] MEDS ORDERED: LEVOFLOXACIN500 MG PO (10:08)
--- NOTE | 2016-05-12 11:00 | NUR ---
PT AWAKE WATCHING TV WITH MOM AT BEDSIDE. ALL NEEDS MET, WILL CONTINUE TO MONITOR.
--- NOTE | 2016-05-12 12:15 | NUR ---
DISCHARGE PRESCRIPTIONS AND INSTRUCTIONS GIVEN, PT VERBALIZED UNDERSTANDING. WOUND CARE SUPPLIES PROVIDED. DISCHARGE PHOTOS OF LEFT KNEE WOUND AND LEFT ELBOW WOUND TAKEN, AFFIXED IN CHART. ID WRISTBAND AND IV ACEES REMOVED, CATHETER TIP INTACT. PT LEFT UNIT ON A WHELCHAIR ACCOMPANIED BY MOTHER IN STABLE CONDITION
--- NOTE | 2016-05-17 13:07 | NUR ---
LATE ENTRY FOR 05/11/16; PT ADMITTED TO FLOOR W/IV VANCOMYCIN RUNNING.
== END 2016-05-12 12:15 | disposition home or self-care (01) ==
LOC: MED 13:50 → MTU 16:05
PROVIDERS: ADMIT Family Medicine; ATTEND Family Medicine
DX: L03.116 Cellulitis of left lower limb (principal); I73.9 Peripheral vascular disease, unspecified; E78.1 Pure hyperglyceridemia; E83.51 Hypocalcemia; G43.909 Migraine, unspecified, not intractable, without status migrainosus
CPT/HCPCS: 36415; 71010; 73562; 76536; 80048; 80053; 80061; 82248; 83036; 83605; 83735; 84100; 84439; 84443; 85025; 85610; 85730; 87040; 87070; 87081; 93005; 96365; 96366; 96367; 96372; 99285; G0378; J0696; J1644; J1956; J3370; J7030; J7060; Q0092